=== PATIENT | male | born 1995 | race Caucasian/White ===

== ENCOUNTER 2020-12-18 13:24 | Emergency (ER) | payer SELFPAY ==
[~2020-12-18] VITALS: Ht 167.6 cm; Wt 95.0 kg
[2020-12-18 14:55] VITALS: BP 147/87
== END 2020-12-18 14:55 | disposition home or self-care (01) | DRG 914 ==
LOC: ED 13:24
DX: S89.91XA Unspecified injury of right lower leg, initial encounter (principal); X50.0XXA Overexertion from strenuous movement or load, initial encounter
CPT/HCPCS: L1830